=== PATIENT | male | born 1945 | race African-American/Black ===

== ENCOUNTER 2021-03-03 02:06 | Emergency (ER) | payer MEDICARE, MEDICAID ==
[~2021-03-03] VITALS: Ht 172.7 cm; Wt 63.5 kg
[2021-03-03 07:52] VITALS: BP 139/79
== END 2021-03-03 07:56 | disposition home or self-care (01) ==
LOC: ER 02:06
DX: S09.8XXA Other specified injuries of head, initial encounter (principal); F17.210 Nicotine dependence, cigarettes, uncomplicated; W18.39XA Other fall on same level, initial encounter; Y93.89 Activity, other specified; Y92.89 Other specified places as the place of occurrence of the external cause; Y99.8 Other external cause status
CPT/HCPCS: 36415; 70450; 72125; 80320; G0481